=== PATIENT | female | born 1990 | race Caucasian/White ===

== ENCOUNTER 2020-06-29 11:41 | Emergency (ER) | payer MEDICAID, SELFPAY | END 2020-06-29 14:55 | disposition left against medical advice (07) | PROVIDERS: Emergency Provider Emergency Medicine; PCP Nurse Practitioner Primary Care | DX: J02.9 Acute pharyngitis, unspecified (principal) ==

== ENCOUNTER 2020-08-04 08:07 | Emergency (ER) | payer MEDICAID, SELFPAY ==
--- NOTE | ~2020-08-04 | XR_ITS ---
EXAMINATION: LEFT WRIST WITH SCAPHOID. CLINICAL INFORMATION: Left wrist pain status post fall. COMPARISON: None TECHNIQUE: 4 views. FINDINGS: There is no visible acute fracture, dislocation or subluxation. The soft tissues are normal. XR/XR wrist LT w scaphoid IMPRESSION: Unremarkable left wrist exam.
--- NOTE | 2020-08-04 08:34 | ED.UPPEXIN ---
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 States has had similar in the past. 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 Status episode started yesterday and had to miss work today because the pain. Denies any swelling, redness, specific injury. Pain sometimes will radiate to the fingers and to the elbow region. MD complaint: injury to: left Onset (ago): day(s) Other Extremity Injury: left: wrist Handedness: left Severity: moderate Severity scale (1-10): 5 Relieving factors: cold therapy and immobilization Exacerbating factors: movement of extremity Associated symptoms: denies other symptoms Treatments prior to arrival: cold therapy Related Data Previous Rx's Medication Instructions Recorded ibuprofen 800 mg PO BID PRN #21 tab 08/04/20 methylprednisolone [Medrol (Keith)] 4 mg PO PER PKG DIR #21 ea 08/04/20 Allergies Allergy/AdvReac Type Severity Reaction Status Date / Time No Known Allergies Allergy Verified 08/04/20 08:34 Review of Systems Review of Systems: Constitutional: No Weight loss, No Fever, No Chills, No Night Sweats, No Fatigue, No Malaise ENT/Mouth: No Hearing loss, No Ear Pain, No Nasal Congestion, No Sinus Pain, No Hoarseness, No sore throat, No Rhinorrhea, No Swallowing Difficulty Eyes: No Eye Pain, No Swelling, No Redness, No Foreign Body, No Discharge, No Vision Changes Cardiovascular: No Chest Pain, No SOB, No Dyspnea on Exertion, No Orthopnea, No Edema, No Palpitations Respiratory: No Cough, No Sputum, No Wheezing, No Smoke Exposure, No Dyspnea Gastrointestinal: No Nausea, No Vomiting, No Diarrhea, No Constipation, No abdominal Pain, No Hematochezia, No Melena Genitourinary: No Dysuria, No Urinary Frequency, No Hematuria, No Urinary Incontinence, No Urgency, No Flank Pain, No Urinary Flow Changes, No Hesitancy Musculoskeletal: No joint pain, No Myalgias, No Joint Swelling, as noted per HPI Skin: No Skin Lesions, No rash Neuro: No Weakness, No Numbness, No Paresthesias, No Loss of Consciousness, No Dizziness, No Headache Psych: No Social Issues Heme/Lymph: No Bruising, No Bleeding,No Lymphadenopathy Endocrine: No Polyuria, No Polydipsia, No Temperature Intolerance Yes all other systems are reviewed and are negative [facility] Past Medical History Medical History (Updated 08/04/20 @ 09:30 by Porfirio Leonardo NP) No known health problems Social History Social History Advance Directives: No Advance Directives Information Provided: No Physical Exam Vital Signs: Vital Signs: Last Vital Signs Temp 98.6 F 08/04/20 09:01 Pulse 76 08/04/20 09:01 Resp 16 08/04/20 09:01 BP 147/93 H 08/04/20 09:01 Pulse Ox 99 08/04/20 09:01 Body Mass Index 27.4 Reviewed Const: General: cooperative and healthy appearing; No acute distress or intoxicated appearing Nutritional Appearance: average body habitus Orientation/consciousness: patient oriented x3 Resp: Effort & Inspection: normal respiratory effort Auscultation: clear to auscultation bilaterally Cardio: Jugular venous distension: no JVD Rhythm: regular rhythm Heart sounds: S1 normal heart sound present and S2 normal heart sound present : General: Yes no CVA tenderness Back/Spine/Pelvis: Back: no CVA tenderness Skin: General skin exam: no rashes or lesions noted Neuro: General: patient oriented x3 Extrem: General: Yes normal to inspection Left upper extremity: normal to inspection and wrist (Full passive range of motion. Positive Phalen's test.) Course Course Course Narrative: Overuse type injury to the left wrist findings consistent with carpal tunnel syndrome type symptoms. X-ray without acute findings. Will provide short course cock-up splint, NSAIDs and steroids. Will have her follow up with employee health center/Ortho for further management. 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 CLINICAL INFORMATION: Left wrist pain status post fall. COMPARISON: None TECHNIQUE: 4 views. FINDINGS: There is no visible acute fracture, dislocation or subluxation. The soft tissues are normal. XR/XR wrist LT w scaphoid IMPRESSION: Unremarkable left wrist exam. Dictated By:BRAYDON BRYAN MDSigned By:<Electronically signed by BRAYDON BRYAN MD in OV>08/04/20906 DD/ 0834TD/TT: Wool Scourer: [facility] [place] Plan Discharge Clinical Impression: Sprain and strain of wrist Patient Disposition: Home, Self-Care Instructions: Arthralgia (ED), Wrist Sprain (ED) Additional Instructions: Warm compresses Gentle stretching Wear your wrist splint for comfort Take medication prescribed Follow-up with employee health center/Orthopedics as discussed Return if any concerns or worsening symptoms Thank you Prescriptions: New ibuprofen 800 mg tablet 800 mg PO BID PRN (Reason: pain) Qty: 21 RF: 0 methylprednisolone [Medrol (Keith)] 4 mg tablets,dose pack 4 mg PO PER PKG DIR Qty: 21 RF: 0 Referrals: [facility] [Provider Group] - 2 days Earlene Silvestre MD [Physician] - 1 week Stand Alone Forms: Work/School Release
[2020-08-04 09:01] VITALS: BP 147/93; PULSE 76; RESP 16; TEMP 37; O2SAT 99; BMI 27.4
== END 2020-08-04 09:46 | disposition home or self-care (01) ==
PROVIDERS: Emergency Provider Emergency Medicine Emergency Medical Services
DX: S63.502A Unspecified sprain of left wrist, initial encounter (principal); S66.912A Strain of unspecified muscle, fascia and tendon at wrist and hand level, left hand, initial encounter; X50.3XXA Overexertion from repetitive movements, initial encounter; Y93.9 Activity, unspecified; Y92.9 Unspecified place or not applicable; Y99.9 Unspecified external cause status
CPT/HCPCS: 73110; 99283

== ENCOUNTER 2020-08-07 15:55 | Outpatient (REF) | payer MEDICAID, SELFPAY | END 2020-08-07 15:56 | disposition home or self-care (01) | LOC: HO.LAB 15:55 | PROVIDERS: Visit Provider Internal Medicine | DX: Z20.822 Contact with and (suspected) exposure to COVID-19 (principal) | CPT/HCPCS: 36415; C9803; U0003; U0005 ==

== ENCOUNTER 2020-10-23 12:44 | Emergency (ER) | payer MEDICAID, SELFPAY ==
[2020-10-23 13:31] VITALS: BP 142/90; PULSE 89; RESP 18; TEMP 37.1; O2SAT 100; BMI 34.1
--- NOTE | 2020-10-23 14:34 | ED.GENADULT ---
HPI - General Adult General Chief complaint: General Medical Stated complaint: back pain/injury headache Time Seen by Provider: 10/23/20 14:34 History of Present Illness HPI narrative: Patient with 2 complaints First complaint is a headache, this headache had a gradual onset and is similar to headaches she gets several times a year and has had many times before, it is the same it is not a new headache The headache has pressure on both sides of the head and a is accompanied by photophobia but no vision loss or change, there is no nausea or vomiting there is no dizziness or fainting no fever no injury She also complains of back pain the back pain began 4 days ago at work when she lifted a heavy object for this work-related injury and now has pain on the left side of the back with the pain and some tingling going down the left leg to the foot, there is no loss of sensation there is no weakness there is no changes to bowel or bladder no dysuria no frequency no incontinence Related Data Previous Rx's Medication Instructions Recorded ibuprofen 800 mg PO BID PRN #21 tab 08/04/20 methylprednisolone [Medrol (Keith)] 4 mg PO PER PKG DIR #21 ea 08/04/20 cyclobenzaprine 5 mg PO TID PRN #14 tab 10/23/20 ibuprofen 600 mg PO Q6H PRN #20 tab 10/23/20 oxycodone-acetaminophen [Percocet] 1 tab PO Q6H PRN #10 tab 10/23/20 prednisone 60 mg PO DAILY 3 Days #9 tab 10/23/20 Allergies Allergy/AdvReac Type Severity Reaction Status Date / Time No Known Allergies Allergy Verified 08/04/20 08:34 Review of Systems Review of Systems: Positive for headache with mild photophobia as well as left-sided back pain radiating to the left foot Negatives are no fever no chills no dizziness no weakness no fainting no feeling faint no loss consciousness no vision change no neck pain no stiff neck no sore throat no chest pain no shortness of breath no abdominal pain no nausea vomiting or diarrhea no numbness weakness or tingling no difficulty forming words no confusion Yes all other systems are reviewed and are negative PMFSH Past Medical History Source: nursing notes reviewed Medical History (Updated 10/24/20 @ 00:01 by Tamiko Smith) No known health problems Social History Social History Advance Directives: Yes Advance Directives Information Provided: No Advance Directives on File: No Patient : No Physical Exam Vital Signs: Vital Signs: Last Vital Signs Temp 98.8 F 10/23/20 13:31 Pulse 89 10/23/20 13:31 Resp 18 10/23/20 13:31 BP 142/90 H 10/23/20 13:31 Pulse Ox 100 10/23/20 13:31 Body Mass Index 34.1 general appearance no acute distress The head is normocephalic atraumatic Pupils equal round reactive to light extra ocular motions are intact The neck is supple, no meningismus The chest is clear to auscultation bilateral Heart no murmur Abdomen soft nontender Extremities full range of motion x4 Neuro cranial nerves 2-12 intact as tested, A&O x3, conversation both understanding as well as verbalization are normal, gait and balance are normal, motor is 5/5 x4 Course Course Course Narrative: Patient's headache which began gradually this morning is same as many prior headaches, no variation from typical pattern, there is no vomiting there is no injury there is no fever, it is not the worst headache of life and it usually gets better with ibuprofen, so she was treated with a shot of Toradol The back pain with pain radiating down the left leg but no other neurologic deficit is treated with analgesics muscle relaxer and a trial of prednisone and patient will follow with [facility] for work related injury Discharge Plan Discharge Clinical Impression: Left lumbar radiculopathy, Headache Patient Disposition: Home, Self-Care Additional Instructions: The headache is similar to prior headaches We treated it with a Toradol injection Return any time for worsening headache vomiting vision changes any worse condition or any concerns The back pain that started after lifting a box at work is being treated with pain medication muscle relaxer and an anti-inflammatory prednisone which sometimes reduces inflammation around the nerve and helps with the pain shooting down your leg For this work related injury follow with [facility] as needed Return any time for any worse condition or concerns Prescriptions: New oxycodone-acetaminophen [Percocet] 5-325 mg tablet 1 tab PO Q6H PRN (Reason: pain) Qty: 10 RF: 0 cyclobenzaprine 5 mg tablet 5 mg PO TID PRN (Reason: muscle spasm) Qty: 14 RF: 0 ibuprofen 600 mg tablet 600 mg PO Q6H PRN (Reason: pain) Qty: 20 RF: 0 prednisone 20 mg tablet 60 mg PO DAILY 3 Days Qty: 9 RF: 0 No Action ibuprofen 800 mg tablet 800 mg PO BID PRN (Reason: pain) Qty: 21 RF: 0 methylprednisolone [Medrol (Keith)] 4 mg tablets,dose pack 4 mg PO PER PKG DIR Qty: 21 RF: 0 Stand Alone Forms: Work/School Release Interventions: ED Discharge Assessment Last Done: 10/23/20 15:01 Discharge Date/Time: 10/23/20 15:03
[2020-10-23] MEDS: Ketorolac Tromethamine 30 MG/ML VIAL IM (14:56)
[2020-10-23] MEDS: predniSONE 20 MG TABLET 60 MG PO (14:56)
== END 2020-10-23 15:03 | disposition home or self-care (01) ==
PROVIDERS: Emergency Provider Emergency Medicine Emergency Medical Services
DX: R51.9 Headache, unspecified (principal); M54.16 Radiculopathy, lumbar region
CPT/HCPCS: 96372; 99283; 99284; J1885

== ENCOUNTER 2024-11-04 12:35 | Outpatient (REF) | payer MEDICAID, SELFPAY ==
--- OUTSIDE RECORDS SUMMARY | 2024-10-13 14:45 | XMS_ITS | Encounter Summary ---
Author Organization [employer] Address [address] [facility] 7t [place] [address] Care Team Providers Care Freight Rate Specialist Name Role Phone Teo Baron MD Primary Care Prov ider Reason for Referral * Consultation (Urgent) - Pending Review Specialty Diagnoses / Procedures Referred By Dwight garrett Referred To Contact Neurology Diagnoses Optic papillitis of both eyes Malika Levy, OD [address] [place] [address] Phone: tel: fax: Wei Thornton MD [address] [place] [address] [place] [address] Phone: tel: fax: Referral ID Status Reason Start Date Expiration Date Visits Requested Visits Authorized [id number] Pending Review Specialty Services Required 11/04/2024 11/04/2025 1 1 * Imaging (Routine) - Authorized Specialty Diagnoses / Procedures Referred By Dwight garrett Referred To Contact Radiology Diagnoses Optic papillitis of both eyes Procedures MRV Head Angio w/ and w/o Contrast Malika Levy, OD [address] [place] [address] Phone: tel: fax: [address] Phone: tel: fax: Referral ID Status Reason Start Date Expiration Date V isits Requested Visits Authorized [id number] Authorized 10/14/2024 10/14/2025 1 1 * Imaging (Routine) - Authorized Specialty Diagnoses / Procedures Referred By Dwight garrett Referred To Contact Radiology Diagnoses Optic papillitis of both eyes Procedures MR Orbit Face Neck w/ and w/o Contrast Malika Levy, OD [address] [place] [address] Phone: tel: fax: [address] Phone: tel: fax: Referral ID Status Reason Start Date Expiration Date V isits Requested Visits Authorized [id number] Authorized 10/14/2024 10/14/2025 1 1 * Imaging (Urgent) - Authorized Specialty Diagnoses / Procedures Referred By Dwight garrett Referred To Contact Radiology Diagnoses Optic papillitis of both eyes Procedures Mr Brain w/ and w/o Contrast Malika Levy, OD [address] [place] [address] Phone: tel: fax: [address] Phone: tel: fax: Referral ID Status Reason Start Date Expiration Date V isits Requested Visits Authorized [id number] Authorized 10/14/2024 10/14/2025 1 1 Encounter Details Date Type Department Care Team (Late st Contact Info) Description 10/13/2024 2:45 PM EDT Office Visit [facility] [address] [place] [id number] Malika Levy, OD [address] [place] [id number] Hypermetropia, bilateral (Primary Dx); Lattice degeneration of retina, right; Optic papillitis of both eyes Social History Tobacco Use Types Packs/Day Years Used Date Smoking Tobacco: Never Smokeless Tobacco: Never Alcohol Use Standard Drinks/Week Comments Never 0 (1 standard drink = 0.6 oz pur e alcohol) Depression Answer Date Recorded Patient Health Questionnaire-9 Score 0 06/02/2024 Patient Health Questionnaire-9 Score 0 06/02/2024 Last PHQ-9: Questionnaire Data Not on file 0 06/02/2024 Depression Answer Date Recorded Patient Health Questionnaire-2 Score 0 06/02/2024 Comments Unknown Sex and Gender Information Value Date Recorded Sex Assigned at Female 03/11/2022 10:37 AM EDT Legal Sex Female 10:37 AM EDT Gender Identity Female 03/11/2022 10:37 AM EDT Sexual Orientation Choose not to disclose 2021 10:37 AM EDT documented as of this encounter Progress Notes * Malika Levy, OD - 10/13/2024 2:45 PM EDT MRI r/o Eye Care Progress Note Patient ID: Lindy Petty is a 34 y.o. female. HPI Patient presents for comprehensive eye exam. Patient reports blurry vision both eyes (OU) at distance without glasses. Patient gets headaches daily that can last about a week at a time. This has been going on for 2 years. Pain is behind both eyes BARRON: 3 years Last edited by Malika Levy, ODILIA on 10/14/2024 12:18 PM. Current Medications[1] Medical History[2] Surgical History[3] Family History[4] Tobacco Use: Low Risk (10/13/2024) Tobacco Smoking Tobacco Use: Never Smokeless Tobacco Use: Never Passive Exposure: Not on file Allergies[5] ROS Positive for: Eyes Negative for: Constitutional, Gastrointestinal, Neurological, Skin, Genitourinary, Musculoskeletal,HENT, Endocrine, Cardiovascular, Respiratory, Psychiatric, Allergic/Imm, Heme/Lymph Last edited by Malika Levy, ODILIA on 10/13/2024 2:54 PM. Base Eye Exam Visual Acuity (Snellen - Linear) Right Left Dist cc 20/20 20/20 Tonometry ([facility] , 3:05 PM) Right Left Pressure 19 18 Pupils Pupils APD Right PERRL None Left PERRL None Visual Clark (Counting fingers) Left Right Full Full Extraocular Movement Right Left Full Full Neuro/Psych Oriented x3: Yes Mood/Affect: Normal Dilation Both eyes: 1.0% tropicamide @ 3:17 PM Slit Lamp and Fundus Exam External Exam Right Left External Normal Normal Slit Lamp Exam Right Left Lids/Lashes Clean and clear Clean and clear Conjunctiva/Sclera White and quiet White and quiet Cornea Clear Clear Anterior Chamber Deep and quiet, angles open Deep and quiet, angles open Iris Flat, round Flat, round Lens Clear Clear Fundus Exam Right Left Vitreous Clear Clear Disc Security-Widefield, indistinct margins with nasal elevation Security-Widefield, indistinct margins with nasal elevation C/D Ratio Vertical 0.15 0.15 C/D Ratio Horizontal 0.15 0.15 Macula Flat, even pigmentation Flat, even pigmentation Vessels AV 2/3, normal course and caliber AV 2/3, normal course and caliber Periphery Lattice inferior Temporal, pigmented without holes, (-) tears/detachments 360 No holes/tears/detachments 360 Refraction Wearing Rx Sphere Cylinder [place] Right +0.50 -0.50 172 Left +0.50 -0.50 010 Manifest Refraction (Subjective) Sphere Cylinder [place] Dist VA Right +0.50 -0.50 172 20/20 Left +0.50 -0.50 010 20/20 Final Rx Sphere Cylinder [place] Right +0.50 -0.50 172 Left +0.50 -0.50 010 Expiration Date: 10/13/2026 Assessment and Plan Diagnoses and all orders for this visit: Hypermetropia, bilateral - Dispensed updated spec Rx Lattice degeneration of retina, right - Patient ed on findings. Discussed symptoms of retinal detachment and to RTC immediately if flashes/floaters/curtains over vision occur Optic papillitis of both eyes - Elevated optic nerves with indistinct margins suspicious for optic nerve edema both eyes (OU) - Patient endorses frequent headaches that occur daily, can last for a full week straight. Headaches have worsened over the past 2 years. Patient takes tylenol which helps a little bit. She can be woken up from sleep with a headache. Patient endorses pulsatile tinnitus and vision changes with postural changes. - Order placed for urgent MRI brain & orbits w w/o and MRV to rule out compressive lesion, venous sinus thrombosis and investigate possible elevated intracranial pressure (ICP). - Advised patient to be seen by PCP/urgent care/ER if symptoms significantly worsen - Monitor in optometry in 6 months Orders: - Mr Brain w/ and w/o Contrast; Future - MR Orbit Face Neck w/ and w/o Contrast; Future - MRV Head Angio w/ and w/o Contrast; Future - OCT, Optic Nerve - OU - Both Eyes Addendum 11/04/24 - MRI brain & orbits complete and resulted and no acute intracranial process or compressive lesion present. Prominent cerebrospinal fluid (CSF) along optic nerve sheath, posterior scleral flattening, dilation of Meckel's caves suggestive of elevated intraocular pressure (IOP) - Referral placed to neurology for LP and IIH eval Malika Levy, ODILIA 10/14/2024, 1:42 PM Chief Media Officer Source: __ None _x_ Bilingual Staff __ Qualified Staff Panel Assembler __ Telephone Chief Media Officer; ID# __ Chief Media Officer brought by patient (family member, friend, OUTPATIENT FACILITY PHYSICAL THERAPIST, etc) __ In person bondactor machine operator __ Ipad Chief Media Officer; ID#: Language Spoken During Exam: Iraqi [1] No current outpatient medications on file. No current facility-administered medications for this visit. [2] History reviewed. No pertinent past medical history. [3] Past Surgical History: Procedure Laterality Date SECTION, CLASSIC 2010/2012/2014 TUBAL LIGATION 2014 [4] Family History Problem Relation Name Age of Onset No Known Problems Mother No Known Problems Father Cancer Neg Hx [5] No Known Allergies documented in this encounter Miscellaneous Notes * Addendum Note - Malika Levy OD - 10/13/2024 2:45 PM EDTAddended by: MALIKA LEVY on: 11/04/2024 02:54 PM Modules accepted: Orders documented in this encounter Plan of Treatment Upcoming Encounters Date Type Department Care Team (Late st Contact Info) Description 11/18/2024 1:00 PM EDT Office Visit [facility] [address] [place], [place] [phone] Teo Baron MD [address] [place] [phone] 02/14/2025 1:00 PM EDT Office Visit [facility] [address] [place] [address] Malika Levy, OD [address] [place] [address] Scheduled Orders Name Type Priority Associated Diagnoses Orde r Schedule Mr Brain w/ and w/o Contrast Imaging Urgent Optic papillitis of both eyes Expected: 10/14/2024, Expires: 10/14/2025 MRV Head Angio w/ and w/o Contrast Imaging Routine Optic papillitis of both eyes Expected: 10/14/2024, Expires: 10/14/2025 Scheduled Referrals Name Type Priority Associated Diagnoses Orde r Schedule Referral to Neurology Outpatient Referral Urgent Optic papillitis of both eyes Expected: 11/04/2024 (Approximate), Expires: 11/04/2025 documented as of this encounter Procedures Procedure Name Priority Date/Time Associated Diagnosis Comments MR ORBIT FACE NECK W AND WO CONTRAST Routine 11/04/2024 12:21 PM EDT Optic papillitis of both eyes OCT, OPTIC NERVE - OU - BOTH EYES Routine 10/13/2024 2:45 PM EDT Optic papillitis of both eyes documented in this encounter Results * MR Orbit Face Neck w/ and w/o Contrast (11/04/2024 12:21 PM EDT) Anatomical Region Laterality Modality Head, Neck Magnetic Resonan ce 11/04/2024 12:2 1 PM EDT Narrative 11/04/2024 2:21 PM EDT [address] [address] Magnetic Resonance Report Signed Patient: Lindy Snow MR#: [id number] : 1990 Acct:[id number] Age/Sex: 34 / F ADM Date: 11/04/24 Loc: HO.MRI Attending Dr: Malika Levy DO Ordering Physician: Malika Levy DO Date of Service: 11/04/24 Procedure(s): MR orbits face neck wo/w con Accession Number(s): [id number] cc: Physician,Unknown ; Malika Levy DO EXAMINATION: MRI ORBITS/FACE/NECK WITHOUT AND WITH CONTRAST CLINICAL INFORMATION: Papilledema. Rule out compressive lesion. Investigated elevated intracranial pressure. COMPARISON: None available. TECHNIQUE: MRI of the brain, orbits, and maxillofacial region was obtained using routine sequences without and with contrast. Intravenous contrast: Gadavist 7.5 mL. FINDINGS: ORBITS: There is increased CSF present within the optic nerve sheath complexes, with mild flattening of the optic discs. Distal optic nerve sheath complexes abutting the optic disc measure up to 7 mm (normal is 5 mm or less). The optic nerves have normal signal. The intraconal, conal, and extraconal structures appear normal. The globes are intact. The lenses are appropriately located. The orbital apices appear normal. BRAIN: There is a partial empty sella noted. Meckel's caves are slightly prominent. The transverse sinuses are notably small. The ventricles, sulci, and cisterns are normal in size and configuration for patient age. There is no ventriculomegaly. There is no shift of midline. There is no extra-axial fluid collection. There is no diffusion restriction. No focal parenchymal signal abnormalities. No abnormal enhancement after contrast administration. Vascular flow voids are preserved within the skull base. Posterior fossa structures appear normal. Cerebellar tonsils are appropriately located. Mastoids and tympanic cavities are normally aerated. No suspicious bone marrow changes are evident. MAXILLOFACIAL REGION: Batt Machine Operator spaces appear normal. Imaged salivary glands appear normal. Extracranial soft tissues included in the imaging appear normal. Paranasal sinuses are normally aerated. MR/MR orbits face neck wo/w con IMPRESSION: 1. No evidence of intracranial hemorrhage, acute infarction, mass effect, or edema. 2. Constellation of ancillary findings which may indicate underlying pseudotumor cerebri. Electronically signed by: Dakotah Ruiz MD 11/04/2024 02:18 PM EDT Dictated By: Dakotah Ruiz MD Signed By: <Electronically signed by Dakotah Ruiz MD in OV> 11/04/24 1418 DD/ 1221 TD/TT: 11/04/24 1351 Reed Fixer: Procedure Note Donotuseinterpreter, Image - 11/04/2024 [place] [address] Magnetic Resonance Report Signed Patient: Lindy SnowMR#: [id number] : 1990Acct:[id number] Age/Sex: 34 / FADM Date: 11/04/24 Loc: HO.MRI Attending Dr: Malika Levy DO Ordering Physician: Malika Levy DO Date of Service: 11/04/24 Procedure(s): MR orbits face neck wo/w con Accession Number(s): [id number] cc: Physician,Unknown ; Malika Levy DO EXAMINATION: MRI ORBITS/FACE/NECK WITHOUT AND WITH CONTRAST CLINICAL INFORMATION: Papilledema. Rule out compressive lesion. Investigated elevated intracranial pressure. COMPARISON: None available. TECHNIQUE: MRI of the brain, orbits, and maxillofacial region was obtained using routine sequences without and with contrast. Intravenous contrast: Gadavist 7.5 mL. FINDINGS: ORBITS: There is increased CSF present within the optic nerve sheath complexes, with mild flattening of the optic discs. Distal optic nerve sheath complexes abutting the optic disc measure up to 7 mm (normal is 5 mm or less). The optic nerves have normal signal. The intraconal, conal, and extraconal structures appear normal. The globes are intact. The lenses are appropriately located. The orbital apices appear normal. BRAIN: There is a partial empty sella noted. Meckel's caves are slightly prominent. The transverse sinuses are notably small. The ventricles, sulci, and cisterns are normal in size and configuration for patient age. There is no ventriculomegaly. There is no shift of midline. There is no extra-axial fluid collection. There is no diffusion restriction. No focal parenchymal signal abnormalities. No abnormal enhancement after contrast administration. Vascular flow voids are preserved within the skull base. Posterior fossa structures appear normal. Cerebellar tonsils are appropriately located. Mastoids and tympanic cavities are normally aerated. No suspicious bone marrow changes are evident. MAXILLOFACIAL REGION: Batt Machine Operator spaces appear normal. Imaged salivary glands appear normal. Extracranial soft tissues included in the imaging appear normal. Paranasal sinuses are normally aerated. MR/MR orbits face neck wo/w con IMPRESSION: 1. No evidence of intracranial hemorrhage, acute infarction, mass effect, or edema. 2. Constellation of ancillary findings which may indicate underlying pseudotumor cerebri. Electronically signed by: Dakotah Ruiz MD 11/04/2024 02:18 PM EDT RP Dictated By: Dakotah Ruiz MD Signed By: <Electronically signed by Dakotah Ruiz MD in OV> 11/04/24 1418 DD/ 1221 TD/TT: 11/04/24 1351 Reed Fixer: us Malika Levy OD IMG MRI PROCEDURES Final Result * OCT, Optic Nerve - OU - Both Eyes (10/13/2024 2:45 PM EDT) Malika Nagy, OD - 10/14/2024 11:33 AM EDT Images from the original result were not included. OCT OPTIC NERVE INTERPRETATION Optical Coherence Tomography Interpretation Report Reliability: OD: SS 61 - good quality image OS: SS 60 - good quality image Measurements: Avg RNFL thickness OD: 118 microns OS: 109 microns Test findings: OD: Thick RNFL nasal. Slight upturning of Bruch's temporal ONH, (-) drusen OS: Thick RNFL superior nasal and inferiorly. No color mapping as disc was mapped incorrectly. Slight upturning of Bruch's temporal ONH, (-) drusen Impression and Plan: Suspected papilledema both eyes (OU). Order neuroimaging. 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
--- NOTE | ~2024-11-04 | MR_ITS ---
EXAMINATION: MRI ORBITS/FACE/NECK WITHOUT AND WITH CONTRAST CLINICAL INFORMATION: Papilledema. Rule out compressive lesion. Investigated elevated intracranial pressure. COMPARISON: None available. TECHNIQUE: MRI of the brain, orbits, and maxillofacial region was obtained using routine sequences without and with contrast. Intravenous contrast: Gadavist 7.5 mL. FINDINGS: ORBITS: There is increased CSF present within the optic nerve sheath complexes, with mild flattening of the optic discs. Distal optic nerve sheath complexes abutting the optic disc measure up to 7 mm (normal is 5 mm or less). The optic nerves have normal signal. The intraconal, conal, and extraconal structures appear normal. The globes are intact. The lenses are appropriately located. The orbital apices appear normal. BRAIN: There is a partial empty sella noted. Meckel's caves are slightly prominent. The transverse sinuses are notably small. The ventricles, sulci, and cisterns are normal in size and configuration for patient age. There is no ventriculomegaly. There is no shift of midline. There is no extra-axial fluid collection. There is no diffusion restriction. No focal parenchymal signal abnormalities. No abnormal enhancement after contrast administration. Vascular flow voids are preserved within the skull base. Posterior fossa structures appear normal. Cerebellar tonsils are appropriately located. Mastoids and tympanic cavities are normally aerated. No suspicious bone marrow changes are evident. MAXILLOFACIAL REGION: Lining Stuffer spaces appear normal. Imaged salivary glands appear normal. Extracranial soft tissues included in the imaging appear normal. Paranasal sinuses are normally aerated. MR/MR orbits face neck wo/w con IMPRESSION: 1. No evidence of intracranial hemorrhage, acute infarction, mass effect, or edema. 2. Constellation of ancillary findings which may indicate underlying pseudotumor cerebri. Electronically signed by: Dakotah Ruiz MD 11/04/2024 02:18 PM EDT
[2024-11-04] MEDS: gadobutroL 7.5 ML VIAL IVPUSH (14:01)
== END 2024-11-04 12:36 | disposition home or self-care (01) ==
LOC: HO.MRI 12:35
PROVIDERS: Visit Provider Optometrist
DX: H46.03 Optic papillitis, bilateral (principal)
CPT/HCPCS: 70543; A9585

== ENCOUNTER → 2024-11-04 12:45 | Outpatient (BNV) | payer MEDICAID, SELFPAY | PROVIDERS: Visit Provider Radiology Diagnostic Radiology | DX: H47.11 Papilledema associated with increased intracranial pressure (principal) | CPT/HCPCS: 70543 ==

== ENCOUNTER 2024-11-24 09:29 | Outpatient (REF) | payer MEDICAID, SELFPAY ==
--- OUTSIDE RECORDS SUMMARY | 2024-11-24 09:52 | XMS_ITS | Encounter Summary ---
Author Organization [employer] Address [address] [place] [address] [address] [place] [address] Care Team Providers Care Gas Treater Name Role Phone Teo Baron MD Primary Care Prov ider Encounter Details Date Type Department Care Team ([facility] Contact Info) Description 11/18/2024 Orders Only [facility] [address] [place] [address] Teo Baron MD [address] [place] [address] Social History Tobacco Use Types Packs/Day Years Used Date Smoking Tobacco: Never Smokeless Tobacco: Never Alcohol Use Standard Drinks/Week Comments Never 0 (1 standard drink = 0.6 oz pur e alcohol) Depression Answer Date Recorded Patient Health Questionnaire-9 Score 0 06/02/2024 Patient Health Questionnaire-9 Score 0 06/02/2024 Last PHQ-9: Questionnaire Data Not on file 0 06/02/2024 Housing Stability Answer Date Recorded What is your housing situation today? I have yajaira emanuel 11/10/[address] you li ve. Do you have problems with any of the following? None of the above 11/10/2024 Food Insecurity Answer Date Recorded Within the past 12 months, y ou worried that your food would run out before you got money to buy more: Never True 11/10/2024 Within the past 12 months,th e food you bought just didn't last and you didn't have enough money to get more: Never True 06/2024 Transportation Answer Date Recorded In the past 12 months, has l ack of transportation kept you from medical appts, meetings, work or from getting things needed for daily living? No 11/10/2024 Utilities Answer Date Recorded In the past 12 months, has t he electric, gas, oil or water company threatened to shut off services in your home? No 11/10/2024 Depression Answer Date Recorded Patient Health Questionnaire-2 Score 0 06/02/2024 Internet Access Answer Date Recorded Internet Access Q1 Yes 11/10/2024 Internet Access Q2 Not on file 11/10/2024 Comments Unknown Sex and Gender Information Value Date Recorded Sex Assigned at Female 03/11/2022 10:37 AM EDT Legal Sex Female 10:37 AM EDT Gender Identity Female 03/11/2022 10:37 AM EDT Sexual Orientation Choose not to disclose 2021 10:37 AM EDT documented as of this encounter Plan of Treatment Upcoming Encounters Date Type Department Care Team ([facility] st Contact Info) Description 11/30/2024 11:20 AM EDT Procedure Visit [facility] [address] [place] [address] Carolyn Rasmussen MD [address] [place] [address] 12/20/2024 2:30 PM EDT Telemedicine [facility] [address] [place] [address] Teo Baron MD [address] [place] [address] 02/14/2025 1:00 PM EDT Office Visit [facility] [address] [place] [address] TarkaLatonya, OD [address] [place] [address] documented as of this encounter Visit Diagnoses Not on filedocumented in this encounter Additional Health Concerns Assessment Noted Time PHQ-9 Depression Total Score: 0 06/02/19 25 9:43 AM EST documented as of this encounter Care Teams Gas Treater Relationship Specialty Start Date End Date Teo Baron MD [address] [place] [address] PCP - General Internal Medicine 08/11/24 documented as of this encounter
[2024-11-24 10:16] LABS: MANUAL DIFF FLAG NO
[2024-11-24 10:30] LABS: Hematocrit 36.3 % (37.0-47.0); Hemoglobin 11.3 g/dl (12.0-16.0); Imm Gran Abs Auto 0.05 X10*3/uL (0.00-0.03); Imm Gran Pct Auto 0.5 % (0.0-0.4); Lymphocytes Absolute Auto 3.0 X10*3/uL (1.2-4.9); Mean Corpuscular HGB Conc 31.1 g/dl (31.0-35.0); Mean Corpuscular Hemoglobin 24.1 pg (27.0-33.0); Mean Corpuscular Volume 77.4 fL (80.0-98.0); NRBC Abs Auto 0.000 X10*3/uL (0.0-0.012); NRBC Pct Auto 0.0 /100WBC (0.0-0.2); Platelet Count 247 X10*3/uL (160-400); Red Blood Count 4.69 X10*6/uL (4.20-5.50); White Blood Count 10.3 X10*3/uL (4.8-10.8)
[2024-11-24 10:39] LABS: Hemoglobin A1C 111.8561 umol/L; Total Hemoglobin (HGBA1C) 3001.2872 umol/L
[2024-11-24 11:26] LABS: Alanine Aminotransferase 25 U/L (0-31); Albumin Level 4.3 g/dL (3.5-5.0); Alkaline Phosphatase 89 U/L (39-117); Anion Gap 12 (12-20); Aspartate Amino Transferase 23 U/L (5-31); Blood Urea Nitrogen 16 mg/dL (9-16); Calcium 9.0 mg/dL (8.4-10.2); Carbon Dioxide 27 mmol/L (22-29); Chloride 104 mmol/L (96-108); Cholesterol 200 mg/dL (<200); Estimated Glomerular Filt Rate > 60; HDL Cholesterol 40 mg/dL (>40); Potassium 3.4 mmol/L (3.3-5.1); Sodium 140 mmol/L (135-145); Total Protein 6.9 g/dL (6.5-8.0); Triglycerides 208 mg/dL (<150)
[2024-11-24 11:31] LABS: HIV Num 1 0.05 S/CO (0.00-0.99); ~HepC Num1 0.10 S/CO (0.00-0.79); ~Hepatitis C Antibody Nonreactive (Nonreactive)
== END 2024-11-24 09:30 | disposition home or self-care (01) ==
LOC: HO.CHCLDS 09:29
PROVIDERS: Visit Provider Internal Medicine
DX: E66.811 Obesity, class 1 (principal); E66.09 Other obesity due to excess calories; Z68.34 Body mass index [BMI] 34.0-34.9, adult; I10 Essential (primary) hypertension
CPT/HCPCS: 36415; 80053; 80061; 83036; 84443; 85025; 86803; 87389